=== PATIENT | male | born 1995 | race Hispanic/Latino ===

== ENCOUNTER 2017-10-07 16:58 | Emergency (ER) | payer BC ==
[2017-10-07] MEDS ORDERED: HYDROCODONE/APAP 7.5/325 MG TAB ONE (17:12)
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
[2017-10-07] MEDS ORDERED: SILVER SULFADIAZINE 1% 25 GM TOP ONE (17:19)
[2017-10-07] MEDS ORDERED: TETANUS & DIPHTHERIA TOX,ADULT 0.5 ML VIAL ONE (17:19)
== END 2017-10-07 17:47 | disposition home or self-care (01) ==
LOC: ER 16:58
DX: T25.221A Burn of second degree of right foot, initial encounter (principal); T31.0 Burns involving less than 10% of body surface; X08.8XXA Exposure to other specified smoke, fire and flames, initial encounter; Y93.01 Activity, walking, marching and hiking; Y92.832 Beach as the place of occurrence of the external cause; Z23 Encounter for immunization
CPT/HCPCS: 90714; 99283

== ENCOUNTER 2018-04-01 18:42 | Emergency (ER) | payer BC, SELFPAY ==
[2018-04-01] MEDS ORDERED: TETANUS & DIPHTHERIA TOX,ADULT 0.5 ML VIAL ONE (19:24)
[2018-04-01 19:32] LABS: MPV 10.6 fL (7.6-11.3)
[2018-04-01 19:41] LABS: Absolute Lymphocytes (CBC) 1.7 K/uL (0.7-4.9); Absolute Monocytes 0.7 K/uL (0.1-1.3); Absolute Neutrophil 3.3 K/uL (1.8-8.0); BUN Blood Urea Nitrogen 13 mg/dL (7-18); Basophils % 0.3 % (0-1.3); Bicarbonate 25 mmol/L (21-32); Glucose Level 84 mg/dL (74-106); Hematocrit 46.3 % (39.6-49.0); Lymphocytes % 29.4 % (15.3-44.8); MCH 29.3 pg (27.0-35.0); MCV 86.1 fL (80-100); Monocytes % 11.2 % (3.3-12.3); Potassium 3.6 mmol/L (3.5-5.1); RBC Red Blood Cell Count 5.38 M/uL (4.33-5.43); Sodium Level 140 mmol/L (136-145)
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
== END 2018-04-01 21:40 | disposition short-term general hospital (02) ==
LOC: ER 18:42
DX: S05.31XA Ocular laceration without prolapse or loss of intraocular tissue, right eye, initial encounter (principal); W22.8XXA Striking against or struck by other objects, initial encounter; Z23 Encounter for immunization
CPT/HCPCS: 36415; 70487; 76377; 80048; 85025; 90714; 99285; Q9967